=== PATIENT | female | born 1985 | race Caucasian/White ===

== ENCOUNTER 2021-03-17 04:51 | Emergency (ER) | payer SELFPAY ==
[~2021-03-17] VITALS: Ht 165.1 cm; Wt 45.0 kg
[2021-03-17] MEDS ORDERED: LORAZEPAM 2MG/ML CPJ IV ONE (05:15)
[2021-03-17 05:36] LABS: BASOPHILS % 0.2 % (0.0-2.0); EOSINOPHILS % 1.8 % (0.0-5.0); HEMATOCRIT. 41.9 % (36.0-48.0); HEMOGLOBIN. 14.4 g/dL (12.0-16.0); LYMPHOCYTES % 16.2 % (20.0-50.0); MEAN CORPUSCULAR HEMOGLOBIN 33.9 pg (28.0-32.0); MEAN CORPUSCULAR VOLUME 98.5 fL (81.0-99.0); MEAN PLATELET VOLUME 8.7 fl (7.4-10.4); NEUTROPHILS % 73.8 % (40.0-76.0); PLATELET 297 x1000/uL (130-400); RED BLOOD CELL COUNT 4.26 mill/uL (4.2-5.4); RED CELL DISTRIBUTION WIDTH 13.3 % (11.6-14.6)
[2021-03-17 05:39] LABS: CHLORIDE 110 mEq/L (98-107)
[2021-03-17 06:15] LABS: HCG SCREEN NEGATIVE
[2021-03-17 06:20] LABS: INR 1.1; PROTHROMBIN TIME 12.2 sec (9.6-11.0)
[2021-03-17] MEDS ORDERED: TOPUD PO (07:08)
[2021-03-17] MEDS ORDERED: ONDA4TAB5 PO (07:09)
[2021-03-17 07:30] VITALS: BP 118/76
== END 2021-03-17 07:31 | disposition home or self-care (01) ==
LOC: ER 05:08
DX: R10.13 Epigastric pain (principal); F41.9 Anxiety disorder, unspecified
CPT/HCPCS: 36415; 74176; 80053; 83690; 84703; 85025; 85610; 96374; 99284; J2060